=== PATIENT | female | born 1975 ===

== ENCOUNTER 2018-01-01 07:48 | Emergency (ER) | payer BC, OTHER ==
[2018-01-01] MEDS ORDERED: NA CHLORIDE 0.9% 1,000 ML ONE (08:21)
[2018-01-01] MEDS ORDERED: ONDANSETRON 4 MG/2 ML VIAL ONE (08:21)
[2018-01-01 08:32] LABS: Urine Blood TRACE (NEG); Urine Glucose 2+ (NEG); Urine Protein NEGATIVE (NEG); Urine Specific Gravity 1.015 (1.005-1.030)
[2018-01-01] MEDS ORDERED: ACETAMINOPHEN 500 MG TAB ONE (09:05)
[2018-01-01 09:22] LABS: Absolute Lymphocytes (CBC) 0.7 K/uL (0.7-4.9); Absolute Monocytes 0.7 K/uL (0.1-1.3); Absolute Neutrophil 21.2 K/uL (1.8-8.0); Basophils % 0.4 % (0-1.3); Hematocrit 34.6 % (36.0-45.0); MCH 20.5 pg (27.0-35.0); MCV 66.2 fL (80-100); MPV 7.3 fL (7.6-11.3); Monocytes % 3.2 % (3.3-12.3); RBC Red Blood Cell Count 5.23 M/uL (3.86-4.86)
[2018-01-01 09:31] LABS: Bicarbonate 23 mEq/L (21-31); Glucose Level 123 mg/dL (65-120); Lipase 23 U/L (22-51); Potassium 3.7 mEq/L (3.6-5.0); Sodium Level 137 mEq/L (135-145)
[2018-01-01 09:38] LABS: ALT/SGPT 15 IU/L (10-60); AST/SGOT 23 IU/L (10-42); Albumin 3.7 g/dL (3.2-5.5); Alkaline Phosphatase 47 IU/L (42-121); Amylase Level 39 U/L (28-100); BUN Blood Urea Nitrogen 15 mg/dL (6-20); Bilirubin Direct < 0.1 mg/dL (0-0.2); Bilirubin Total 0.5 mg/dL (0.3-1.2); Protein, Total 8.5 g/dL (6.0-8.3)
[2018-01-01 09:42] LABS: Urine Bacteria <20 /HPF (<20); Urine Culture Reflex Order NOT NEEDED; Urine RBC <5 /HPF (NONE SEEN)
[2018-01-01] MEDS ORDERED: CEFTRIAXONE/SWI 1gm 1 GM/10 ML SYR ONE (09:43)
[2018-01-01 10:35] LABS: Anisocytosis 1+; Blood Morphology Comment NOTED (NOT SEEN); Hypochromasia 1+; Platelet Estimate INCR; Polychromasia SLIGHT
--- NOTE | 2018-01-01 10:38 | ER ---
Nurse's Notes [facility] Name: Kaylee Govea Age: 42 yrs Sex: Female : 1975 Arrival Date: 01/01/2018 Time: 07:51 Bed 17 Private MD: Diagnosis: Streptococcal pharyngitis;Nausea and vomiting Presentation: 01/01 08:00 Presenting complaint: Patient states: sore throat, R ear pain and vomiting x3 since ss this morning. Pt reports daughter recently had the same s/s and was diagnosed with strep. Transition of care: patient was not received from another setting of care. Onset of symptoms was January 01, 2018. Care prior to arrival: None. 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 - Social history:: Smoking status: Patient/guardian denies using tobacco. Screenin:49 Abuse screen: Denies threats or abuse. Nutritional screening: No deficits noted. em Tuberculosis screening: No symptoms or risk factors identified. Fall Risk None identified. Assessment: 08:45 General: Appears in no apparent distress. uncomfortable, Behavior is calm, cooperative. em Pain: Complains of pain in throat and right ear. Neuro: Level of Consciousness is awake, alert, obeys commands, Oriented to person, place, time, situation. Cardiovascular: Capillary refill < 3 seconds Patient's skin is warm and dry. Respiratory: Airway is patent Respiratory effort is even, unlabored, Respiratory pattern is regular, symmetrical, Breath sounds are clear bilaterally. GI: Abdomen is round non-distended. GI: Reports nausea, vomiting. : Urine is clear. EENT: Throat is reddened. Derm: Skin is intact, is healthy with good turgor, Skin is pink, warm \T\ dry. Musculoskeletal: Range of motion: intact in all extremities. 08:50 General: The previous assessment is accurate. Call light remains within reach. . ss 09:38 Reassessment: Patient appears in no apparent distress at this time. critical lab alert, em WBC 22.7, notified ADÁN Phillip. 10:18 Reassessment: Patient appears in no apparent distress at this time. Patient and/or em family updated on plan of care and expected duration. Pain level reassessed. Patient is alert, oriented x 3, equal unlabored respirations, skin warm/dry/pink. Given water for PO challenge, pt tolerated well Patient states symptoms have improved. Vital Signs: 08:03 BP 113 / 86; Pulse 116; Resp 17; Temp 99.2(O); Pulse Ox 100% on R/A; Weight 91.63 kg; ss Height 5 ft. 3 in. (160.02 cm); Pain 6/10; 08:55 BP 121 / 80; Pulse 113; Resp 18; Pulse Ox 99% on R/A; em 09:08 Temp 100.1(O); em 10:18 BP 129 / 85; Pulse 107; Resp 20; Temp 99.0(O); Pulse Ox 100% on R/A; em 10:58 BP 114 / 79; Pulse 108; Resp 20; Pulse Ox 99% on R/A; em 08:03 Body Mass Index 35.78 (91.63 kg, 160.02 cm) ED Course: 07:51 Patient arrived in ED. tw3 07:55 Marjan Rodriguez NP is PHCP. rh1 07:55 Aneudy Barclay MD is Attending Physician. rh1 08:01 Triage completed. ss 08:03 Arm band placed on right wrist. ss 08:19 Gene Restrepo LVN is Primary Nurse. em 08:36 Inserted saline lock: 22 gauge in right hand, using aseptic technique. Blood collected. ss 08:56 No provider procedures requiring assistance completed. em 08:57 Patient has correct armband on for positive identification. Placed in gown. Bed in low em position. Call light in reach. Side rails up X2. Adult w/ patient. 11:00 IV discontinued, intact, bleeding controlled, No redness/swelling at site. Pressure em dressing applied. Administered Medications: 08:43 Drug: NS 0.9% 1000 ml Route: IV; Rate: 1000 ml; Site: right antecubital; ss 10:24 Follow up: IV Status: Completed infusion; IV Intake: 1000ml em 08:43 Drug: Zofran 4 mg Route: IVP; Site: right antecubital; ss 09:09 Follow up: Response: No adverse reaction; Nausea is decreased em 09:09 Drug: Tylenol 1000 mg Route: PO; em 10:20 Follow up: Response: No adverse reaction; Temperature is decreased em 09:48 Drug: Rocephin - (cefTRIAXone) 1 grams Route: IVPB; Infused Over: 30 mins; Site: right la1 hand; 11:08 Follow up: Response: No adverse reaction em Point of Care Testing: Blood Glucose: 08:37 Blood Glucose: 113 mg/dL; Ranges: Outcome: 10:38 Discharge ordered by MD. [facility] 10:59 Discharged to home ambulatory, with family. em 10:59 Condition: good 10:59 Discharge instructions given to patient, family, Instructed on discharge instructions, follow up and referral plans. medication usage, Demonstrated understanding of instructions, follow-up care, medications, Prescriptions given X 2. 11:03 Patient left the ED. em Signatures: Gene Restrepo, TRANSPORTATION WORKER TRANSPORTATION WORKER em Kristie Shields RN RN ss Attema, Lee, RN RN la1 Marjan Rodriguez NP NATURAL SCIENCE MANAGER 1 Emeka, Alondra tw3 Corrections: (The following items were deleted from the chart) 08:03 08:00 Acuity: MKIE 4 ss ss 10:20 10:18 BP 129 / 85; Pulse 107bpm; Resp 20bpm; Pulse Ox 100% RA; em em 10:37 10:18 Reassessment: Patient appears in no apparent distress at this time. Patient em and/or family updated on plan of care and expected duration. Pain level reassessed. Patient is alert, oriented x 3, equal unlabored respirations, skin warm/dry/pink. Patient states symptoms have improved. em
--- NOTE | 2018-01-01 10:39 | EDPHYS ---
Physician Documentation [facility] Name: Kaylee Govea Age: 42 yrs Sex: Female : 1975 Arrival Date: 01/01/2018 Time: 07:51 Bed 17 Private MD: ED Physician Aneudy Barclay HPI: 01/01 07:57 This 42 yrs old Unknown Female presents to ER via Ambulatory with complaints of Fever, rh1 Sore Throat. 07:57 sore throat, vomiting. Onset: The symptoms/episode began/occurred this morning. rh1 Severity of symptoms: At their worst the symptoms were moderate in the emergency department the symptoms are unchanged. The patient has not experienced similar symptoms in the past, but family has similar symptoms, daughter, daughter with + strep last week. The patient has not recently seen a physician. Pt. reports she awoke with sore throat this am, and has had vomiting x 3 episodes. Mild dry coughing last night, none this am. Denies any diarrhea, abdominal pain, chest pain, SOB, urinary symptoms.. 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 - Social history:: Smoking status: Patient/guardian denies using tobacco. ROS: 07:57 Constitutional: Negative for fever, chills rh1 07:57 ENT: Positive for ear pain, sore throat, Negative for rhinorrhea, sinus congestion, difficulty swallowing, difficulty handling secretions, hoarseness. 07:57 Cardiovascular: Negative for chest pain, edema, palpitations. 07:57 Respiratory: Positive for cough, with no reported sputum, Negative for dyspnea on exertion, shortness of breath, wheezing. 07:57 Abdomen/GI: Positive for nausea, vomiting, Negative for abdominal pain, diarrhea. 07:57 Back: Negative for decreased range of motion, pain at rest, pain with movement, radiated pain. 07:57 : Negative for urinary symptoms, small amounts. 07:57 Skin: Negative for pallor, rash. 07:57 Neuro: Negative for altered mental status, dizziness, headache, numbness, tingling, weakness. 07:57 All other systems are negative. Exam: 07:57 Constitutional: This is a well developed, well nourished patient who is awake, alert, rh1 and in no acute distress. Head/Face: Normocephalic, atraumatic. 07:57 Chest/axilla: Normal chest wall appearance and motion. Nontender with no deformity. No lesions are appreciated. Cardiovascular: Regular rhythm with a normal S1 and S2, tachycardia with rate at 116. No gallops, murmurs, or rubs. No JVD. No pulse deficits. Respiratory: Lungs have equal breath sounds bilaterally, clear to auscultation. No rales, rhonchi or wheezes noted. No increased work of breathing. Abdomen/GI: Soft, non-tender, with normal bowel sounds. No distension. No guarding or rebound. No evidence of tenderness throughout. Back: No spinal tenderness. No costovertebral tenderness. Full range of motion. Skin: Warm, dry with normal turgor. Normal color with no rashes, no lesions, and no evidence of cellulitis. 07:57 ENT: External ear(s): are unremarkable, no pain with movement, Ear canal(s): are normal, clear, no cerumen impaction, no erythema, no foreign body, no purulent discharge, no swelling, TM's: are normal, no evidence of bulging, no dullness, no erythema, no fluid levels, no hemotympanum, no rupture, normal bony landmarks, Nose: is normal, no drainage, no edema, no erythema, Mouth: is normal, no lip abnormalities, no mucosal abnormalities, Posterior pharynx: Airway: normal, no evidence of obstruction, patent, Tonsils: with erythema, no enlargement, no exudate, no ulcerations, Uvula: normal, midline, non-edematous, erythema, swelling, is not appreciated, erythema, that is mild, exudate, is not appreciated, peritonsillar mass, is not appreciated. 07:57 Neck: ROM/movement: is normal, is supple, without pain, no range of motions limitations, no meningismus, no nuchal rigidity, Lymph nodes: lymphadenopathy is appreciated, anterior cervical nodes, submandibular nodes. 07:57 Neuro: Orientation: is normal, to person, place \T\ time. Mentation: is normal, lucid, able to follow commands, Motor: is normal, moves all fours, Sensation: is normal, no obvious gross deficits, Gait: is steady, at a normal pace, without difficulty. Vital Signs: 08:03 BP 113 / 86; Pulse 116; Resp 17; Temp 99.2(O); Pulse Ox 100% on R/A; Weight 91.63 kg; ss Height 5 ft. 3 in. (160.02 cm); Pain 6/10; 08:55 BP 121 / 80; Pulse 113; Resp 18; Pulse Ox 99% on R/A; em 09:08 Temp 100.1(O); em 10:18 BP 129 / 85; Pulse 107; Resp 20; Temp 99.0(O); Pulse Ox 100% on R/A; em 10:58 BP 114 / 79; Pulse 108; Resp 20; Pulse Ox 99% on R/A; em 08:03 Body Mass Index 35.78 (91.63 kg, 160.02 cm) ss MDM: 07:57 Patient medically screened. rh1 10:37 Data reviewed: vital signs, nurses notes, lab test result(s), and as a result, I will 1 discharge patient. Data interpreted: Pulse oximetry: on room air is 100 %. Interpretation: normal. Counseling: I had a detailed discussion with the patient and/or guardian regarding: the historical points, exam findings, and any diagnostic results supporting the discharge/admit diagnosis, lab results, the need for outpatient follow up, a family practitioner, to return to the emergency department if symptoms worsen or persist or if there are any questions or concerns that arise at home. Response to treatment: the patient's symptoms have markedly improved after treatment. 01/01 08:04 Order name: Amylase, Serum; Complete Time: 09:40 rh1 01/01 08:04 Order name: Basic Metabolic Panel; Complete Time: 09:40 rh1 01/01 08:04 Order name: CBC with Diff; Complete Time: 10:37 rh1 01/01 08:04 Order name: Creatinine for Radiology; Complete Time: 09:37 rh1 01/01 08:04 Order name: Hepatic Function; Complete Time: 09:40 rh01/01 08:04 Order name: Lipase; Complete Time: 09:40 rh01/01 08:04 Order name: Urine Microscopic Only; Complete Time: 09:55 rh1 01/01 08:04 Order name: Strep; Complete Time: 09:37 rh1 01/01 08:21 Order name: Urine Dipstick--Ancillary (enter results); Complete Time: 08:33 ag 01/01 08:21 Order name: Urine --Ancillary (enter results); Complete Time: 08:33 ag 01/01 09:30 Order name: Manual Differential; Complete Time: 10:37 EDMS 01/01 08:04 Order name: Urine Test (obtain specimen); Complete Time: 08:19 rh01/01 08:04 Order name: IV Saline Lock; Complete Time: 08:37 rh1 01/01 08:04 Order name: Labs collected and sent; Complete Time: 08:37 rh01/01 08:04 Order name: Urine Dipstick-Ancillary (obtain specimen); Complete Time: 08:19 rh1 01/01 08:04 Order name: Glucose Level; Complete Time: 08:37 rh01/01 09:40 Order name: PO challenge; Complete Time: 10:20 rh1 Administered Medications: 08:43 Drug: NS 0.9% 1000 ml Route: IV; Rate: 1000 ml; Site: right antecubital; ss 10:24 Follow up: IV Status: Completed infusion; IV Intake: 1000ml em 08:43 Drug: Zofran 4 mg Route: IVP; Site: right antecubital; ss 09:09 Follow up: Response: No adverse reaction; Nausea is decreased em 09:09 Drug: Tylenol 1000 mg Route: PO; em 10:20 Follow up: Response: No adverse reaction; Temperature is decreased em 09:48 Drug: Rocephin - (cefTRIAXone) 1 grams Route: IVPB; Infused Over: 30 mins; Site: right la1 hand; 11:08 Follow up: Response: No adverse reaction em Point of Care Testing: Blood Glucose: 08:37 Blood Glucose: 113 mg/dL; Ranges: Critical Glucose Levels:Adult <50 mg/dl or >400 mg/dl <40 mg/dl or >180 mg/dl Disposition: 13:55 Co-signature as Attending Physician, Aneudy Barclay MD I agree with the assessment and kdr plan of care. Disposition: 01/01/18 10:38 Discharged to Home. Impression: Streptococcal pharyngitis, Nausea and vomiting. - Condition is Stable. - Discharge Instructions: Nausea and Vomiting, Pharyngitis, Salt Water Gargle, Strep Throat. - Prescriptions for Amoxicillin 500 mg Oral Capsule - take 1 capsule by ORAL route every 8 hours for 10 days; 30 tablet. Zofran 4 mg Oral Tablet - take 1 tablet by ORAL route every 12 hours As needed; 6 tablet. - Medication Reconciliation Form, Thank You Letter, Antibiotic Education, Prescription Opioid Use form. - Follow up: Private Physician; When: 1 - 2 days; Reason: Recheck today's complaints, Continuance of care, Re-evaluation by your physician. Follow up: Emergency Department; When: As needed; Reason: Fever > 102 F, If symptoms return, Trouble breathing, Worsening of condition. - Problem is new. - Symptoms have improved. Signatures: Dispatcher [employer] EDMS Aneudy Barclay MD MD kdr Munoz, Edgar, INCOME TAX AUDITOR INCOME TAX AUDITOR Kristie Burnette RN RN Jeremias Pineda RN RN la1 Marjan Rodriguez NP MUSIC SPECIALIST rh1
== END 2018-01-01 11:03 | disposition home or self-care (01) ==
LOC: ER 07:48
DX: J02.0 Streptococcal pharyngitis (principal); I10 Essential (primary) hypertension; E11.9 Type 2 diabetes mellitus without complications; Z88.5 Allergy status to narcotic agent; Z88.8 Allergy status to other drugs, medicaments and biological substances
CPT/HCPCS: 36415; 80048; 80076; 81003; 81015; 81025; 82150; 82962; 83690; 85025; 87081; 99284; J0696; J2405; J7030

== ENCOUNTER 2022-03-17 09:46 | Emergency (ER) | payer BC ==
[2022-03-17] MEDS ORDERED: MORPHINE 4 MG/ML SYR ONE (10:27)
[2022-03-17] MEDS ORDERED: ONDANSETRON 4 MG/2 ML VIAL ONE (10:27)
--- NOTE | 2022-03-17 11:02 | RAD REPORT ---
EXAM DESCRIPTION: RAD - Knee Right 3 View - 03/17/2022 10:46 am CLINICAL HISTORY: knee pain COMPARISON: No comparisons FINDINGS/IMPRESSION: No acute fracture. No malalignment. No significant focal degenerative changes.
--- NOTE | 2022-03-17 11:02 | RAD REPORT ---
EXAM DESCRIPTION: RAD - Ankle Left 3 View - 03/17/2022 10:45 am CLINICAL HISTORY: DEFORMITY COMPARISON: Knee Right 3 View dated 03/17/2022 FINDINGS/IMPRESSION: Mildly displaced fracture of the lateral malleolus, below the tibiofibular synd esmosis. Soft tissue swelling is present laterally.
--- NOTE | 2022-03-17 13:04 | EDPHYS ---
Physician Documentation [facility] Name: Kaylee Govea Age: 46 yrs Sex: Female : 1975 Arrival Date: 03/17/2022 Time: 10:03 Bed 17 Private MD: ED Physician Uriel Linares HPI: 03/17 10:05 This 46 yrs old Unknown Female presents to ER via EMS with complaints of Ankle Injury. jmm 10:05 The patient presents with an injury, pain. Onset: The symptoms/episode began/occurred jmm acutely, just prior to arrival. Thsi is a 46 year old female with a history of dm, htn, pancreatitis that presents to the ED with complaints of left ankle pain after falling down a step. Also complains of pain to the right knee. . Historical: - Allergies: 10:05 atorvastatin; ww 10:05 Losartan; ww 10:05 Vicodin; ww - PMHx: 10:05 Diabetes - NIDDM; Hypertension; Pancreatitis; ww - PSHx: 10:05 Cholecystectomy; ww - Social history:: Smoking status: Patient denies any tobacco usage or history of. ROS: 10:05 Constitutional: Negative for fever, chills, and weight loss, Cardiovascular: Negative jmm for chest pain, palpitations, and edema, Respiratory: Negative for shortness of breath, cough, wheezing, and pleuritic chest pain. 10:05 MS/extremity: Positive for injury or acute deformity. 10:05 All other systems are negative. Exam: 10:05 Constitutional: This is a well developed, well nourished patient who is awake, alert, jmm and in no acute distress. Head/Face: atraumatic. Eyes: EOMI, no conjunctival erythema appreciated ENT: Moist Mucus Membranes Neck: Trachea midline, Supple Chest/axilla: Normal chest wall appearance and motion. Cardiovascular: Regular rate and rhythm. No edema appreciated Respiratory: Normal respirations, no respiratory distress appreciated Abdomen/GI: Non distended, soft Back: Normal ROM Skin: General appearance color normal 10:05 Musculoskeletal/extremity: swelling noted to the left ankle, compartments are soft, ful dorsalis pulse, NVI. 10:05 Musculoskeletal/extremity: abrasion noted to the right lower leg, compartments are soft, NVI, full dorsalis pulse,. 10:05 Skin: Appearance: Color: normal in color. 10:05 Neuro: Orientation: is normal, Mentation: is normal, Memory: is normal. 10:05 Psych: Behavior/mood is pleasant, cooperative. Vital Signs: 10:03 BP 154 / 104; Pulse 75; Resp 18; Temp 97.4; Pulse Ox 100% on R/A; Weight 83.91 kg; ww Height 5 ft. 3 in. (160.02 cm); Pain 10/10; 11:14 BP 124 / 86; Pulse 74; Resp 18; Pulse Ox 99% ; ww 12:15 BP 121 / 84; Pulse 79; Resp 18; Pulse Ox 96% on R/A; ww 13:04 BP 115 / 84; Pulse 76; Resp 18; Pulse Ox 95% on R/A; ww 10:03 Body Mass Index 32.77 (83.91 kg, 160.02 cm) ww MDM: 10:05 Patient medically screened. [facility] 12:41 Data reviewed: vital signs, nurses notes. Counseling: I had a detailed discussion with [facility] the patient and/or guardian regarding: the historical points, exam findings, and any diagnostic results supporting the discharge/admit diagnosis. 12:59 Counseling: I had a detailed discussion with the patient and/or guardian regarding: [facility] radiology results, the need for outpatient follow up, to return to the emergency department if symptoms worsen or persist or if there are any questions or concerns that arise at home. 03/17 10:06 Order name: Ankle Left 3 View XRAY; Complete Time: 11:11 [facility] 03/17 10:06 Order name: Knee Right 3 View XRAY; Complete Time: 11:11 [facility] 03/17 10:06 Order name: Saline Lock; Complete Time: 10:30 [facility] Administered Medications: 10: Drug: morphine 4 mg Route: IVP; Infused Over: 4 mins; Site: right forearm; ww 10: Drug: Zofran (Ondansetron) 4 mg Route: IVP; Site: right forearm; ww Disposition Summary: 03/17/22 13:04 Discharge Ordered Location: Home [facility] Condition: Stable [facility] Diagnosis - Distal Fibular Fracture [facility] - Right Leg Abrasion [facility] Followup: [facility] - With: Chuck Vila MD - When: 2 - 3 days - Reason: Recheck today's complaints, Continuance of care, Re-evaluation by your physician Discharge Instructions: - Discharge Summary Sheet jmm - Ankle Fracture jm Forms: - Medication Reconciliation Form jmm - Thank You Letter pura - Antibiotic Education valentine - Prescription Opioid Use [facility] Prescriptions: - Ultracet 37.5-325 mg Oral Tablet - take 1 tablet by ORAL route every 6 hours - for up to 5 days; do not exceed 8 jmm tablets per day.; 30 tablet; Refills: 0, Product Selection Permitted - ondansetron 4 mg Oral tablet,disintegrating - take 1 tablet by ORAL route every 4-6 hours; 20 tablet; Refills: 0, Product jm Selection Permitted Signatures: Dispatcher [employer] Tima Lomas PA PA jmm Wood, Whitney, RN RN ww
--- NOTE | 2022-03-17 13:04 | ER ---
Nurse's Notes [facility] Name: Kaylee Govea Age: 46 yrs Sex: Female : 1975 Arrival Date: 03/17/2022 Time: 10:03 Bed 17 Private MD: Diagnosis: Distal Fibular Fracture;Right Leg Abrasion Presentation: 03/17 10:03 Chief complaint: Patient states: Stepped off a step and fell hearing popping noise in ww her left ankle and scratching her right knee. Coronavirus screen: Client denies travel out of the [place] in the last 14 days. Ebola Screen: Patient denies travel to an Ebola-affected area in the 21 days before illness onset. Initial Sepsis Screen: Does the patient meet any 2 criteria? No. Patient's initial sepsis screen is negative. Does the patient have a suspected source of infection? No. Patient's initial sepsis screen is negative. Risk Assessment: Do you want to hurt yourself or someone else? Patient reports no desire to harm self or others. Onset of symptoms was March 17, 2022. 10:03 Method Of Arrival: EMS: [facility] ww 10:03 Acuity: MIKE 3 ww Triage Assessment: 10:05 General: Appears uncomfortable, Behavior is cooperative. Pain: Complains of pain in ww right knee and left ankle. Neuro: Barba Agitation-Sedation Scale (RASS): 0 - Alert and Calm Level of Consciousness is awake, alert, obeys commands, Oriented to person, place, time, situation, Speech is normal, Reports headache from crying. Cardiovascular: Capillary refill < 3 seconds Patient's skin is warm and dry. Pulses are palpable in left dorsalis pedis artery Chest pain is denied. Respiratory: Airway is patent Respiratory effort is even, unlabored, Respiratory pattern is regular, symmetrical. GI: No signs and/or symptoms were reported involving the gastrointestinal system. Abdomen is round. : No signs and/or symptoms were reported regarding the genitourinary system. Derm: Skin is healthy with good turgor, Skin is pink, warm \T\ dry. right knee abrasion. Musculoskeletal: Swelling present in left lateral ankle, left medial ankle and anterior aspect of left ankle. Historical: - Allergies: 10:05 atorvastatin; ww 10:05 Losartan; ww 10:05 Vicodin; ww - PMHx: 10:05 Diabetes - NIDDM; Hypertension; Pancreatitis; ww - PSHx: 10:05 Cholecystectomy; ww - Social history:: Smoking status: Patient denies any tobacco usage or history of. Screenin:07 Abuse screen: Denies threats or abuse. Denies injuries from another. Nutritional ww screening: No deficits noted. Tuberculosis screening: No symptoms or risk factors identified. Fall Risk Fall in past 12 months (25 points). No secondary diagnosis (0 pts). No IV (0 pts). Ambulatory Aid- None/Bed Rest/Nurse Assist (0 pts). Gait- Normal/Bed Rest/Wheelchair (0 pts) Mental Status- Oriented to own ability (0 pts). Total Johnson Fall Scale indicates Low Risk Score (25-44 pts). Fall prevention measures have been instituted. Side Rails Up X 2 Placed close to Nursing Station 1:1 attendant Assigned to Pt. Frequent Obs/Assesments occuring Family Present and informed to notify staff if they need to leave bedside As available Patient and Family Educated on Fall Prevention Program and strategies. Assessment: 10:07 Reassessment: Patient appears in no apparent distress at this time. No changes from ww previously documented assessment. Patient and/or family updated on plan of care and expected duration. Pain level reassessed. Patient is alert, oriented x 3, equal unlabored respirations, skin warm/dry/pink. see triage assessmnet. 11:15 Reassessment: Patient appears in no apparent distress at this time. No changes from ww previously documented assessment. Patient and/or family updated on plan of care and expected duration. Pain level reassessed. Patient is alert, oriented x 3, equal unlabored respirations, skin warm/dry/pink. 12:25 Reassessment: Patient appears in no apparent distress at this time. No changes from ww previously documented assessment. Patient and/or family updated on plan of care and expected duration. Pain level reassessed. Patient is alert, oriented x 3, equal unlabored respirations, skin warm/dry/pink. 13:03 Reassessment: Patient appears in no apparent distress at this time. No changes from ww previously documented assessment. Patient and/or family updated on plan of care and expected duration. Pain level reassessed. Patient is alert, oriented x 3, equal unlabored respirations, skin warm/dry/pink. 13:07 Reassessment: placed left walking boot on, crutches with crutch teaching. ww Vital Signs: 10:03 BP 154 / 104; Pulse 75; Resp 18; Temp 97.4; Pulse Ox 100% on R/A; Weight 83.91 kg; ww Height 5 ft. 3 in. (160.02 cm); Pain 10/10; 11:14 BP 124 / 86; Pulse 74; Resp 18; Pulse Ox 99% ; ww 12:15 BP 121 / 84; Pulse 79; Resp 18; Pulse Ox 96% on R/A; ww 13:04 BP 115 / 84; Pulse 76; Resp 18; Pulse Ox 95% on R/A; ww 10:03 Body Mass Index 32.77 (83.91 kg, 160.02 cm) ww ED Course: 10:03 Patient arrived in ED. ww 10:05 Triage completed. ww 10: Tima Escamilla PA is PHCP. [facility] 10:05 Uriel Linares MD is Attending Physician. [facility] 10:07 Arm band placed on. ww 10:07 Patient has correct armband on for positive identification. Bed in low position. Call ww light in reach. Side rails up X 1. Adult w/ patient. Pulse ox on. NIBP on. 10:08 Tatiana Rollins, RN is Primary Nurse. ww 10:29 Inserted saline lock: 20 gauge in right forearm, using aseptic technique. ww 10:47 Ankle Left 3 View XRAY In Process Unspecified. EDMS 10:47 Knee Right 3 View XRAY In Process Unspecified. EDMS 13:00 Chuck Vila MD is Referral Physician. [facility] Administered Medications: 10:22 Drug: morphine 4 mg Route: IVP; Infused Over: 4 mins; Site: right forearm; ww 10:29 Drug: Zofran (Ondansetron) 4 mg Route: IVP; Site: right forearm; ww Outcome: 13:04 Discharge ordered by . valentine 13:54 Patient left the ED. ww Signatures: Dispatcher [employer] EDMS Tima Escamilla PA PA jmm Wood, Whitney, RN RN dia
[2022-03-17 14:08] VITALS: TEMP 97.4
[2022-03-17 14:16] VITALS: BP 115/84; O2SAT 95
== END 2022-03-17 13:54 | disposition home or self-care (01) ==
LOC: ER 09:46
DX: S82.62XA Displaced fracture of lateral malleolus of left fibula, initial encounter for closed fracture (principal); S80.811A Abrasion, right lower leg, initial encounter; E11.9 Type 2 diabetes mellitus without complications; I10 Essential (primary) hypertension; Z88.5 Allergy status to narcotic agent; Z88.8 Allergy status to other drugs, medicaments and biological substances
CPT/HCPCS: 73562; 73610; J2405